=== PATIENT | female | born 1955 | race Caucasian/White ===

== ENCOUNTER → 2020-08-02 | Outpatient (CLI) | payer OTHER ==
--- NOTE | 2020-08-02 21:08 | US ---
EXAM DESCRIPTION: Venous,Lower Extremity LT: ULTRASOUND. CLINICAL HISTORY: localized edema. Previous removal of the left greater saphenous vein. COMPARISON: None Available. TECHNIQUE: Claros-scale and doppler sonographic evaluation of the deep venous system of the left lower extremity. FINDINGS: Doppler evaluation shows normal color flow and normal phasicity and augmentation of the left common femoral vein, left femoral vein, and popliteal vein. Also normal color flow and normal phasicity and augmentation of the peroneal, and posterior tibial vein. The left lower extremity deep veins were completely compressible; normal occlusion with transducer pressure. Claros-scale survey showed no echogenic thrombus within these veins. IMPRESSION: 1. Duplex ultrasound evaluation of the left lower extremity deep venous system showing no evidence of thrombosis. Electronically signed by: Hector Rico MD 08/02/2020 9:06 PM [employer]
== END ==
LOC: US 08:35
PROVIDERS: ATTEND Family Medicine
DX: I50.30 Unspecified diastolic (congestive) heart failure (principal); I51.7 Cardiomegaly; I34.8 Other nonrheumatic mitral valve disorders; R60.0 Localized edema

== ENCOUNTER → 2020-08-06 | Outpatient (CLI) | payer OTHER | LOC: GMAE 14:45 | PROVIDERS: ATTEND Family Medicine | DX: I10 Essential (primary) hypertension (principal) ==